=== PATIENT | female | born 1995 | race Caucasian/White ===

== ENCOUNTER 2019-05-20 01:43 | Emergency (ER) | payer OTHER ==
[~2019-05-20] VITALS: Ht 157.5 cm; Wt 56.7 kg
--- NOTE | 2019-05-20 01:46 | NUR ---
DR ARREDONDO AT BEDSIDE
--- NOTE | 2019-05-20 02:00 | NUR ---
JOSE FOR EVALUATION OF HEAD INJURY AND ETOH. PER PARAMEDICS PT WAS BANGING HER HEAD TO THE WALL HOWEVER PT REPORTED FALL AND ADMITTED ON DRINKING ALCOHOL. NOTED W/ A SMALL SKIN TEAR 0.7 X 0.7 CM AND SWELLING ON THE FOREHEAD W/ C/O H/A. PT WAS PLACED ON A MONITOR . VSS. WILL CONT TO MONITOR ,
--- NOTE | 2019-05-20 02:05 | NUR ---
URINE COLLECTED AND SENT TO THE LAB
--- NOTE | 2019-05-20 02:06 | NUR ---
INFORMATION SECURITY CONSULTANT AT BEDSIDE FOR WOUND CARE
[2019-05-20 02:15] LABS: APPEARANCE,URINE Clear (CLEAR); BILIRUBIN,URINE Negative (NEGATIVE); BLOOD, URINE Small Ery/uL (NEGATIVE); COLOR,URINE Yellow (YELLOW); KETONES,URINE Negative (NEGATIVE); LEUKOCYTE ESTERASE ,URINE Negative (NEGATIVE); NITRITE, URINE Negative (NEGATIVE); PROTEIN,URINE Negative (NEGATIVE); UGLUCOSE Negative (NEGATIVE); UROBILINOGEN,URINE 0.2 EU/dL (0.2)
[2019-05-20 02:24] LABS: BASOPHILS # (AUTO) 0.1 /CMM (0.0-0.2); BASOPHILS % (AUTO) 1.3 % (0.0-2.0); EOSINOPHILS % (AUTO) 0.6 % (0.0-6.0); HEMATOCRIT 40 % (33-45); HEMOGLOBIN 12.8 g/dL (11.5-14.8); LYMPHOCYTES # (AUTO) 3.2 /CMM (0.8-4.8); LYMPHOCYTES % (AUTO) 52.8 % (20.0-44.0); MEAN CORPUSCULAR HGB CONC 32 g/dl (31.0-36.0); MEAN CORPUSCULAR VOLUME 88 fL (82-100); MONOCYTES # (AUTO) 0.3 /CMM (0.1-1.30); MONOCYTES % (AUTO) 4.2 % (2.0-12.0); NEUTROPHILS # (AUTO) 2.5 /CMM (1.8-8.9); NEUTROPHILS % (AUTO) 41.1 % (43.0-81.0); PLATELET COUNT (AUTO) 327 /CMM (150-450); RED BLOOD CELL COUNT(AUTO) 4.55 MIL/uL (4.0-5.2); WHITE BLOOD COUNT (AUTO) 6.2 K/uL (4.3-11.0)
[2019-05-20 02:35] LABS: CALCIUM, SERUM 8.8 mg/dL (8.5-10.1); CREATININE 0.8 mg/dL (0.6-1.3)
[2019-05-20 02:39] LABS: BACTERIA,URINE Few /HPF (None Seen); RBC,URINE 0-2 /HPF (0-2); SQUAMOUS EPITHELIAL CELL,UR Few /HPF (None Seen); WBC,URINE 0-2 /HPF (0-3)
[2019-05-20 02:42] LABS: ALBUMIN 3.6 g/dL (3.4-5.0); BILIRUBIN,DIRECT 0.1 mg/dL (0.0-0.2); BILIRUBIN,TOTAL 0.2 mg/dL (0.2-1.0); SALICYLATE 3.3 mg/dL (2.8-20.0); TOTAL PROTEIN, SERUM 7.7 g/dL (6.4-8.2)
[2019-05-20] MEDS ORDERED: IBUPROFEN 600 MG TABLET PO ONE ×2 (05:52→06:00)
[2019-05-20 06:29] VITALS: BP 121/77
--- NOTE | 2019-05-20 06:29 | NUR ---
BOYFRIEND WILL BE TAKING PATIENT HOME.
--- NOTE | 2019-05-20 06:30 | NUR ---
Patient is ambulatory with a steady gait.
--- NOTE | 2019-05-20 06:30 | NUR ---
Patient discharged to home in stable condition. Written and verbal after care instructions given. Patient verbalizes understanding of instruction.
== END 2019-05-20 06:29 | disposition home or self-care (01) ==
LOC: ER 01:45
DX: S01.81XA Laceration without foreign body of other part of head, initial encounter (principal); F10.129 Alcohol abuse with intoxication, unspecified; W19.XXXA Unspecified fall, initial encounter; Y93.89 Activity, other specified; Y92.89 Other specified places as the place of occurrence of the external cause; Y99.8 Other external cause status; Y90.8 Blood alcohol level of 240 mg/100 ml or more
CPT/HCPCS: 36415; 70450; 80048; 80076; 80305; 80307; 80329; 81001; 84703; 85025; 99284; A6403; G0480; 81000-TC